=== PATIENT | female | born 1965 ===

== ENCOUNTER 2017-04-16 16:27 | Inpatient (IN) | payer BC ==
[2017-04-16 16:39] VITALS: BMI 27.4
[2017-04-16 19:41] LABS: BLOOD UREA NITROGEN 14 mg/dl (7-17); CALCIUM 9.6 mg/dL (8.4-10.2); CARBON DIOXIDE 28 mmol/L (22-30); CHLORIDE 102 mmol/L (98-107); GFR AFRICAN-AMERICAN > 60; GLUCOSE,RANDOM 139 mg/dL (65-105); SODIUM 140 mmol/l (132-148)
[2017-04-16 21:01] LABS: HEMATOCRIT 40.1 % (34.0-47.0); MEAN CELL VOLUME 84.4 fl (81.0-99.0); MEAN CORPUSCULAR HEMOGLOBIN 28.2 pg (27.0-31.0); MEAN CORPUSCULAR HGB CONC 33.4 g/dL (33.0-37.0); RED CELL DISTRIBUTION WIDTH 13.7 % (11.5-14.5); WHITE BLOOD COUNT 8.2 K/uL (4.8-10.8)
[2017-04-17] MEDS: Enoxaparin 40 mg Syringe SC SCH (08:39)
--- NOTE | 2017-04-17 11:36 | CP.PCM.HP ---
History of Present Illness - History of Present Illness History of Present Illness: 51 year old female admitted for subacute rehabiliation after acute CVA on . Initally patient woke up, her noticed facial droop, slurred speech weakness of left arm and leg. 911 was called immediately. The patient was initially evaluated at [facility], transferred to [facility]. No intervention was done. Patient had CT head that was negative. MRI brain revealed an infarct of the right MCA territory. She had TTE that was WNL, EF 55% . TTE: tiny PFO. She is currently on pureed diet. She has no medical history. She was seen by her PMD a few weeks ago, Dr. Parks. All labs at that time were within normal limits. PAtient denies any headache, dizziness, chest pain, dyspnea, abdominal pain, nausea, vomiting, diarrhea, constipation. Last BM yesterday. PMH: CVA MEdications: reviewed. AllergieS: NKDA PMD: Dr. Parks All labs/imaging reports from transfer facility reviewed. Present on Admission - Present on Admission Any Indicators Present on Admission: No History of DVT/PE: No History of Uncontrolled Diabetes: No Past Patient History - Infectious Disease Hx of Infectious Diseases: None - Past Social History Smoking Status: Never Smoked - CARDIAC Other/Comment: hx: headache >1 month - NEUROLOGICAL HX Cerebrovascular Accident: Yes - HEENT Other/Comment: eyeglasses for reading and for watching movies. - HEMATOLOGICAL/ONCOLOGICAL Hx AIDS: No Hx Human Immunodeficiency Virus (HIV): No - MUSCULOSKELETAL/RHEUMATOLOGICAL Hx Falls: No Hx Unsteady Gait: Yes - PSYCHIATRIC Hx Substance Use: No - SURGICAL HISTORY Hx Surgeries: No Other/Comment: 04/15/2017 - implantable loop recorder placement. - ANESTHESIA Hx Anesthesia: No Hx Anesthesia Reactions: No Hx Malignant Hyperthermia: No Has any member of the family had a problem w/ anesthesia?: No Meds Allergies/Adverse Reactions: Allergies Allergy/AdvReac Type Severity Reaction Status Date / Time No Known Allergies Allergy Verified 04/16/17 17:59 Physical Exam - Constitutional Appears: No Acute Distress - Head Exam Head Exam: NORMAL INSPECTION - Eye Exam Eye Exam: EOMI, Normal appearance, PERRL - ENT Exam ENT Exam: Mucous Membranes Moist, Normal Exam - Respiratory Exam Respiratory Exam: Clear to Auscultation Bilateral, NORMAL BREATHING PATTERN - Cardiovascular Exam Cardiovascular Exam: REGULAR RHYTHM, +S1, +S2 Additional comments: no murmur - GI/Abdominal Exam GI & Abdominal Exam: Normal Bowel Sounds, Soft. absent: Diminished Bowel Sounds , Distended, Guarding, Tenderness - Extremities Exam Extremities exam: Positive for: normal inspection. Negative for: pedal edema - Neurological Exam Neurological exam: Alert, CN II-XII Intact, Normal Gait, Oriented x3 Additional comments: left sided weakness upper and lower extremity, right upper and lower extremities normal strength - Psychiatric Exam Psychiatric exam: Normal Affect, Normal Mood - Skin Skin Exam: Dry, Intact, Normal Color, Warm Results - Vital Signs Recent Vital Signs: Last Vital Signs Temp 98.1 F 04/17/17 08:55 Pulse 88 04/17/17 08:55 Resp 19 04/17/17 08:55 BP 95/54 L 04/17/17 08:55 Pulse Ox 95 04/17/17 08:55 - Labs Result Diagrams: 04/16/17 20:43 04/16/17 19:25 Labs: Laboratory Results - last 24 hr 04/16/17 04/16/17 19:25 20:43 WBC 8.2 RBC 4.76 Hgb 13.4 Hct 40.1 MCV 84.4 MCH 28.2 MCHC 33.4 RDW 13.7 Plt Count 172 Sodium 140 Potassium 4.0 Chloride 102 Carbon Dioxide 28 Anion Gap 14 BUN 14 Creatinine 1.0 Est GFR ( Amer) > 60 Est GFR (Non-Af Amer) 58 Random Glucose 139 H Calcium 9.6 Assessment & Plan (1) CVA (cerebral vascular accident) Assessment and Plan: 51 year old female admitted after having CVA of right MCA admitted for subacute rehabilitation Patient is hemodynamically stable. She is on statin and aspirin. Neurology consult appreciated; hematology consult placed. Hypercoagulable workup ordered. Rehabilitation as per physiatry. Status: Acute (2) DVT prophylaxis Assessment and Plan: fortino case d/w Dr. Parks Status: Acute
--- NOTE | 2017-04-17 12:11 | PSY.TMCNF ---
Nursing - Vital Signs Vital Signs (Last 8 hours): Vital Signs 04/17/17 08:55 Temperature 98.1 F Pulse Rate 88 Respiratory 19 Rate Blood Pressure 95/54 L O2 Sat by Pulse 95 Oximetry - Medications/Other Issues Comment: Pt at moderate nutritional risk. 1. Pt to cosume 75-100% of meals. Follow-up due on 04/24/2017 - Bladder Management Bladder Pattern: Normal Voiding Method: Toilet - Bowel Management Bowel Pattern: Normal Occupational Therapy - Arousal/Attention/Orientation Patient Orientation: Person, Place, Time, Appropriate to Age, Appropriate to Situation Nutrition - Current Diet Current Diet/ Supplement/ Feedings: pureed nectar thick liquids - Appetite Percent Meal Consumed: 50-74% - Assessment/Goals/Time Frame Assessment/Goals/Time Frame: Pt at moderate nutritional risk. 1. Pt to cosume 75-100% of meals. Follow-up due on 04/24/2017 - Provider Provider: Citlalli Johnson RD Case Management - Discharge Plan Discharge Plan: Home with significant other/family Rehabilitation Plan - Treatment Plan Treatment Plan: Physical Therapy, Occupational Therapy, Speech, Dietary, Patient /Family Education - Recommendation Recommendation: Physical Therapy, Occupational Therapy, Speech, Dietary, Patient /Family Education - Discharge Plan Discharge to: Home
--- NOTE | 2017-04-17 12:18 | CON ---
NEUROLOGY CONSULTATION DATE: 04/17/2017 CHIEF COMPLAINT: Left-sided weakness. HISTORY OF PRESENT ILLNESS: This is a 51-year-old woman with no significant past medical history who was brought to the ER at [facility] on 04/13/2017 with left-sided weakness and left facial numbness as well as left facial droop and therefore was transferred to [facility] for further stroke management. She had an MRI of the brain, which showed a right MCA territory infarction involving the insula parietal lobe with no evidence of intracranial hemorrhage along with a CT angio. Findings consistent with acute infarction of the right frontal lobe with no evidence of any edema, went to [facility] for possible intervention, which was not done. Loop recorder was placed given that there was no reason for her having stroke given that the fact that she is a young patient and underwent further management. Currently, she is at [facility] for rehabilitation. Her left-sided weakness is much better than her initial presentation. She is currently on aspirin and speech is much better. There is very minimal drift. PAST MEDICAL HISTORY: Nothing significant except for recent right MCA territory infarct. SOCIAL HISTORY: No illicit drug use, smoking or EtOH abuse. REVIEW OF SYSTEMS: A 14-point review of systems is negative except in the HPI. ALLERGIES: NO KNOWN DRUG ALLERGIES. MEDICATIONS: Reviewed by nurse per reconciliation sheet. PHYSICAL EXAMINATION: VITAL SIGNS: Temperature 98.1, pulse rate of 80, blood pressure 95/54, respiratory rate of 19, oxygen saturation 95% via room air. GENERAL: The patient is sitting up in bed, in no acute distress. HEENT: Head is atraumatic and normocephalic. PERRLA. Extraocular muscles intact. NECK: Supple. No JVD. No adenopathy noted. LUNGS: Clear to auscultation. No adventitious sounds. HEART: S1 and S2. Normal rate and rhythm. No murmurs, rubs or gallops. ABDOMEN: Soft, nontender and nondistended. Bowel sounds are present. EXTREMITIES: No clubbing. No cyanosis. Peripheral pulses 2+ bilaterally. NEUROLOGIC: The patient is alert and oriented to person, place, month and year. Speech is fluent without any errors. Cranial nerves II through XII intact. Motor exam: Moves all extremities equally except for has left-sided weakness with left-sided pronator drift. Sensory exam: Light touch, pinprick, proprioception and vibration are intact. DTRs are 2+ throughout. Coordination: [id number] intact and slightly often past pointing due to left-sided weakness on the left. Gait is deferred for now. LABORATORY DATA: Sodium is 140, potassium 4, chloride of 102, carbon dioxide 28, BUN of 14, creatinine 0.1, random glucose of 139, A1c 5.4, LDL is 181. ASSESSMENT AND PLAN: This is a 51-year woman with no significant past medical history, came on 04/13/2017 to [facility] with left-sided weakness and left facial droop. A CT angio showed focal findings of acute intracranial infarction in the right frontal lobe with no hemorrhage, therefore was transferred to [facility] for possible intervention which intervention was not done. She had an MRI of the brain, which showed an acute right anterior territory infarction involving the insula parietal lobe with no evidence of intracranial hemorrhage, which was all consistent with her left-sided weakness. Her right middle cerebral artery territory infarct is likely secondary to a diffuse atherosclerotic disease, but given that she is young for age, we need to do a hypercoagulable workup. At this time, recommend, 1. Aspirin 81 mg, Lipitor 40 mg p.o. daily for stroke prevention. 2. Keep blood pressures between 120 to 130 mmHg. 3. Physical therapy/occupational therapy and speech therapy and continue with acute rehabilitation. 4. Get Hematology consult for evaluation of hypercoagulable workup and continue current present medical management. We will get homocysteine level and continue with proper good healthy diet and nutrition. Thank you for this consult. Priyank Garcia MD
--- NOTE | 2017-04-17 13:37 | PCM.RRT ---
[employer] SALES REPRESENTATIVE Nurse Assessment - IV IV Inserted during [employer]ODU[employer] SALES REPRESENTATIVE?: Yes IV Fluids Initiated During [employer] SALES REPRESENTATIVE?: NS 500cc I.Reason for [employer] SALES REPRESENTATIVE - A) Acute Change in Patient: Subjective: dizziness, blurry vision - Neurological Status (Select all that apply): Responsive, Oriented, Verbal, Follows Commands - Respiratory Oxygen Delivery Method: Room Air - Constitutional Additional Comments: tired, appears confused, oriented x 3 responsive - Head Head Exam: ATRAUMATIC, NORMAL INSPECTION, NORMOCEPHALIC - Respiratory Exam Respiratory Exam: Clear to Ausculation Bilateral, NORMAL BREATHING PATTERN - Cardiovascular Exam Cardiovascular Exam: REGULAR RHYTHM, +S1, +S2 - GI/Abdominal Exam GI & Abdominal Exam: Soft. absent: Distended, Tenderness - Neurological Exam Neurological Exam: Alert, Awake, CN II-XII Intact, Oriented x3 Plan - Assessment of Findings&Treatment Plan 51 year old female admitted after CVA for rehabilitation. [employer] SALES REPRESENTATIVE was called due to dizziness and blurry vision after straining while trying to have a bowel movement. PAtient was lying in bed upon entry to room. She denied any dizziness , vision has returned to normal. She appeared to be confused but was oriented, verbally responsive. Lungs were clear bilaterally, heart sounds present, regular rate and rhythm, negative abdominal tenderness/distention. neuro, no new focal deficits Patient has been on pureed diet, her labs were reviewed and no abnormalities noted. Symptoms are likely secondary to dehydration, 500cc NS bolus ordered. EKG done and reviewed: NSR, no acute changes Dr. Diaz was present for the duration of the [employer] SALES REPRESENTATIVE.
[2017-04-17] MEDS ORDERED: Sodium Chloride 0.9% 500 ML IV ONE (13:38)
--- NOTE | 2017-04-17 14:29 | PCM.OPOC ---
Physiatry Overall Plan of Care - Overall Plan of Care Estimated Length of Stay in Weeks: 3 Rehab Impairment: Mobility, Gait, Speech, Balance, Coordination Etiologic Diagnosis: Cerebrovascular Accident Rehab/Medical Prognosis: Fair - Anticipated Interventions Physical Therapy:: Yes Occupational Therapy:: Yes Speech Therapy:: Yes Recreational Therapy:: Yes - Therapy Goals Bed Mobility: Independent Ambulation: Independent Functional Positional Changes:: Independent Other Therapy Goals:: fair - Discharge Plan Identification of Barriers to Discharge: Home Situation Discharge Destination: Home
--- NOTE | 2017-04-17 14:57 | CON ---
PHYSIATRY CONSULTATION TIME: 02:20 in the afternoon. HISTORY OF PRESENT ILLNESS: The patient is a 51-year-old female, Armenian speaking, admitted with acute CVA. PAST MEDICAL HISTORY: The patient with no other significant past medical history. ALLERGIES: NO KNOWN ALLERGY. FAMILY HISTORY: Noncontributory. FUNCTIONAL STATUS: The patient was living with the spouse and daughter, 2 family home. Was independent in most activities previously at home. The patient had an implantable loop recorder put in on 04/15/2017. Had presented with left-sided weakness and headache and transferred to [facility]. MEDICATIONS: As per medical physician. SOCIAL HISTORY: No history of drinking. No history of smoking. REVIEW OF SYSTEMS: The patient is alert, able to follow commands. Cranial nerves II through XII intact to further assess IX and X swallowing nerves, both upper and both lower extremities. Tone normal. Range of motion is functional. Muscle strength is good. Left side weaker than the right side. Muscle strength on the left side 3+, right side 4+. Sensation to pinprick, light touch intact. Deep tendon reflexes 2+ bilaterally. Other systems are negative. IMPRESSION: Impression for the patient left hemiparesis secondary to cerebrovascular accident, status post headache, diagnosed with acute cerebrovascular accident, ICD code of 01.1. Also, no significant past medical history. The patient with deconditioning, gait difficulty, status post implantable loop recorder. Plan for the patient is physical therapy, occupational therapy, recreational therapy and speech therapy program. The patient to get upgrade in diet on nectar consistency of food at present. The patient had a carotid duplex scan done and the MRI of the brain. MRI showed acute right middle cerebral artery infarction including the insula and the perisylvian, parietal lobe. No evidence of intracranial hemorrhage. Estimated length of stay for this patient is 2 to 3 weeks. Anticipated discharge plan is to go back to live at home with supportive services. Treatment goals: The patient to be independent in bed mobility, independent to supervision for functional and positional changes, independent to supervision for simple transfers, supervision and contact guard for complex transfers, independent to supervision for ambulation with assistive devices, supervision to contact guard for elevations. To write overall plan of care on the patient. Reynaldo Khan-Gibilisco, MD
[2017-04-17] MEDS: Lactated Ringer's 1,000 ML IV SCH (17:42)
[2017-04-18] MEDS: Lactated Ringer's 1,000 ML IV SCH (06:45)
[2017-04-18] MEDS: Enoxaparin 40 mg Syringe SC SCH (08:28)
[2017-04-18] MEDS: Pantoprazole 40 mg EC Tab PO SCH (08:28)
[2017-04-18 08:51] LABS: HOMOCYSTEINE 12.2 umol/L (<10.4)
--- NOTE | 2017-04-18 11:51 | CP.PCM.PN ---
Subjective - Date & Time of Evaluation Date of Evaluation: 04/18/17 Time of Evaluation: 09:30 - Subjective Subjective: Patient seen and examined with attending. Patient seen ambulating around the unit with PT. No dizziness. Diet was advanced. IVF can be discontinued now that patient is on regular diet. Objective - Vital Signs/Intake and Output Vital Signs (last 24 hours): Temp Pulse Resp BP Pulse Ox 98.2 F 73 20 105/78 99 04/18/17 07:49 04/18/17 07:49 04/18/17 07:49 04/18/17 07:49 04/18/17 07:49 Intake and Output: 04/18/17 04/18/17 06:59 18:59 Intake Total 1200 Balance 1200 - Medications Medications: Current Medications Acetaminophen (Tylenol 325mg Tab) 650 mg PO Q4 PRN PRN Reason: Pain (1-10) Acetaminophen/Butalbital/Caffeine (Fioricet) 1 tab PO Q4 PRN PRN Reason: Headache Aspirin (Aspirin Chewable) 81 mg PO DAILY [facility] Last Admin: 04/18/17 08:28 Dose: 81 mg Atorvastatin Calcium (Lipitor) 20 mg PO HS [facility] Last Admin: 04/17/17 21:18 Dose: 20 mg Docusate Sodium (Colace) 100 mg PO BID [facility] Last Admin: 04/18/17 08:27 Dose: 100 mg Enoxaparin Sodium (Lovenox) 40 mg SC DAILY [facility] PRN Reason: Protocol Last Admin: 04/18/17 08:28 Dose: 40 mg Pantoprazole Sodium (Protonix Ec Tab) 40 mg PO DAILY [facility] Last Admin: 04/18/17 08:28 Dose: 40 mg Sennosides (Senokot Tab) 8.6 mg PO HS [facility] Last Admin: 04/17/17 21:18 Dose: 8.6 mg - Labs Labs: 04/16/17 20:43 04/16/17 19:25 - Constitutional Appears: Non-toxic, No Acute Distress - Head Exam Head Exam: ATRAUMATIC, NORMAL INSPECTION, NORMOCEPHALIC - Respiratory Exam Respiratory Exam: NORMAL BREATHING PATTERN - Cardiovascular Exam Cardiovascular Exam: REGULAR RHYTHM - Neurological Exam Neurological Exam: Alert, Awake, CN II-XII Intact, Normal Gait, Oriented x3 - Psychiatric Exam Psychiatric exam: Normal Affect, Normal Mood - Skin Skin Exam: Dry, Intact, Normal Color, Warm Assessment and Plan (1) CVA (cerebral vascular accident) Assessment & Plan: 51 year old female admitted after having CVA of right MCA admitted for subacute rehabilitation Patient is hemodynamically stable. She is on statin and aspirin. Neurology consult appreciated; hematology consult placed. Hypercoagulable workup -homocysteine level is low Rehabilitation as per physiatry. Status: Acute (2) DVT prophylaxis Assessment & Plan: lovenox Status: Acute
--- NOTE | 2017-04-18 19:33 | CP.PCM.CON ---
History of Present Illness - History of Present Illness History of Present Illness: 51 year old female admitted to subacute rehab s/p CVA, with concern for hypercoagulable state. She was brought to [facility] when her noted left sided facial droop and weakness. She was found to have a CVA and currently admitted for rehab. Given her stroke, there is a concern for hypercoagulable state. The patient notes to continued left sided weakness but feels it is improving. She denies abnormal bleeding, bruising, and clotting. Past medical history: CVA Past surgical history: None Family history: Denies hematologic and oncologic problems Social history: Denies tobacco, alcohol, and illicit drug use. Allergies: NKA Review of systems: All remaining review of systems including HEENT, cardiovascular, respiratory, gastrointestinal, genitourinary, musculoskeletal, dermatologic, neurologic, and psychiatric are negative unless mentioned in the HPI. Past Patient History - Infectious Disease Hx of Infectious Diseases: None - Past Social History Smoking Status: Never Smoked - CARDIAC Other/Comment: hx: headache >1 month - NEUROLOGICAL HX Cerebrovascular Accident: Yes - HEENT Other/Comment: eyeglasses for reading and for watching movies. - HEMATOLOGICAL/ONCOLOGICAL Hx AIDS: No Hx Human Immunodeficiency Virus (HIV): No - MUSCULOSKELETAL/RHEUMATOLOGICAL Hx Falls: No Hx Unsteady Gait: Yes - PSYCHIATRIC Hx Substance Use: No - SURGICAL HISTORY Hx Surgeries: No Other/Comment: 04/15/2017 - implantable loop recorder placement. - ANESTHESIA Hx Anesthesia: No Hx Anesthesia Reactions: No Hx Malignant Hyperthermia: No Has any member of the family had a problem w/ anesthesia?: No Meds Allergies/Adverse Reactions: Allergies Allergy/AdvReac Type Severity Reaction Status Date / Time No Known Allergies Allergy Verified 04/16/17 17:59 - Medications Medications: Current Medications Acetaminophen (Tylenol 325mg Tab) 650 mg PO Q4 PRN PRN Reason: Pain (1-10) Acetaminophen (Tylenol 325mg Tab) 650 mg PO Q4 PRN PRN Reason: Headache Last Admin: 04/18/17 14:25 Dose: 650 mg Acetaminophen/Butalbital/Caffeine (Fioricet) 1 tab PO Q4 PRN PRN Reason: Headache Aspirin (Aspirin Chewable) 81 mg PO DAILY [facility] Last Admin: 04/18/17 08:28 Dose: 81 mg Atorvastatin Calcium (Lipitor) 20 mg PO HS [facility] Last Admin: 04/17/17 21:18 Dose: 20 mg Docusate Sodium (Colace) 100 mg PO BID [facility] Last Admin: 04/18/17 16:29 Dose: 100 mg Enoxaparin Sodium (Lovenox) 40 mg SC DAILY [facility] PRN Reason: Protocol Last Admin: 04/18/17 08:28 Dose: 40 mg Pantoprazole Sodium (Protonix Ec Tab) 40 mg PO DAILY [facility] Last Admin: 04/18/17 08:28 Dose: 40 mg Sennosides (Senokot Tab) 8.6 mg PO HS [facility] Last Admin: 04/17/17 21:18 Dose: 8.6 mg Physical Exam - Head Exam Head Exam: ATRAUMATIC - Eye Exam Eye Exam: Normal appearance - ENT Exam ENT Exam: Mucous Membranes Dry - Respiratory Exam Respiratory Exam: NORMAL BREATHING PATTERN - Cardiovascular Exam Cardiovascular Exam: +S1, +S2 - GI/Abdominal Exam GI & Abdominal Exam: Normal Bowel Sounds - Extremities Exam Extremities exam: Positive for: normal inspection Results - Vital Signs Recent Vital Signs: Last Vital Signs Temp 98.2 F 04/18/17 07:49 Pulse 89 04/18/17 16:16 Resp 20 04/18/17 07:49 BP 105/78 04/18/17 07:49 Pulse Ox 99 04/18/17 07:49 - Labs Result Diagrams: 04/16/17 20:43 04/16/17 19:25 Labs: Laboratory Results - last 24 hr 04/17/17 10:25 Homocysteine 12.2 H Assessment & Plan (1) Hypercoagulable state Assessment and Plan: work up sent for inherited thrombophilia protein C+S and antithrombin III can be sent at a later time given recent clotting event homocysteine level noted high; will check B12/folate level and start PO folic acid pt on aspirin Thank you for this interesting consult. Status: Acute
[2017-04-19 08:38] LABS: HEMATOCRIT 44.3 % (34.0-47.0); MEAN CELL VOLUME 84.5 fl (81.0-99.0); MEAN CORPUSCULAR HEMOGLOBIN 28.7 pg (27.0-31.0); RED CELL DISTRIBUTION WIDTH 13.9 % (11.5-14.5); WHITE BLOOD COUNT 6.2 K/uL (4.8-10.8)
[2017-04-19 08:54] LABS: BLOOD UREA NITROGEN 14 mg/dl (7-17); CARBON DIOXIDE 31 mmol/L (22-30); CHLORIDE 100 mmol/L (98-107); GFR AFRICAN-AMERICAN > 60; GLUCOSE,RANDOM 133 mg/dL (65-105); POTASSIUM 4.4 MMOL/L (3.6-5.0); SODIUM 142 mmol/l (132-148)
[2017-04-19] MEDS: Enoxaparin 40 mg Syringe SC SCH (09:42)
[2017-04-19] MEDS: Pantoprazole 40 mg EC Tab PO SCH (09:42)
--- NOTE | 2017-04-19 12:51 | CP.PCM.PN ---
Subjective - Date & Time of Evaluation Date of Evaluation: 04/19/17 Time of Evaluation: 12:50 - Subjective Subjective: Patient seen and examined with Dr. Parks, Seen doing PT. Doing well. Clinically stable. Neurology consult noted and appreciated. Hematology consult noted and appreciated. Objective - Vital Signs/Intake and Output Vital Signs (last 24 hours): Temp Pulse Resp BP Pulse Ox 97.7 F 80 20 114/74 99 04/19/17 08:06 04/19/17 08:06 04/19/17 08:06 04/19/17 08:06 04/19/17 08:06 - Medications Medications: Current Medications Acetaminophen (Tylenol 325mg Tab) 650 mg PO Q4 PRN PRN Reason: Pain (1-10) Acetaminophen (Tylenol 325mg Tab) 650 mg PO Q4 PRN PRN Reason: Headache Last Admin: 04/18/17 14:25 Dose: 650 mg Acetaminophen/Butalbital/Caffeine (Fioricet) 1 tab PO Q4 PRN PRN Reason: Headache Aspirin (Aspirin Chewable) 81 mg PO DAILY [facility] Last Admin: 04/19/17 09:42 Dose: 81 mg Atorvastatin Calcium (Lipitor) 20 mg PO HS [facility] Last Admin: 04/18/17 21:30 Dose: 20 mg Docusate Sodium (Colace) 100 mg PO BID [facility] Last Admin: 04/19/17 09:42 Dose: 100 mg Enoxaparin Sodium (Lovenox) 40 mg SC DAILY [facility] PRN Reason: Protocol Last Admin: 04/19/17 09:42 Dose: 40 mg Folic Acid (Folic Acid) 1 mg PO DAILY [facility] Last Admin: 04/19/17 09:42 Dose: 1 mg Pantoprazole Sodium (Protonix Ec Tab) 40 mg PO DAILY [facility] Last Admin: 04/19/17 09:42 Dose: 40 mg Sennosides (Senokot Tab) 8.6 mg PO HS [facility] Last Admin: 04/18/17 21:31 Dose: 8.6 mg - Labs Labs: 04/19/17 08:15 04/19/17 08:15 - Constitutional Appears: Well, No Acute Distress - Head Exam Head Exam: ATRAUMATIC, NORMAL INSPECTION, NORMOCEPHALIC - Respiratory Exam Respiratory Exam: NORMAL BREATHING PATTERN - Cardiovascular Exam Cardiovascular Exam: REGULAR RHYTHM - Extremities Exam Extremities Exam: Normal Inspection. absent: Pedal Edema - Neurological Exam Neurological Exam: Alert, Awake, CN II-XII Intact, Normal Gait, Oriented x3 - Psychiatric Exam Psychiatric exam: Normal Affect, Normal Mood - Skin Skin Exam: Dry, Intact, Normal Color, Warm Assessment and Plan (1) CVA (cerebral vascular accident) Assessment & Plan: 51 year old female admitted after having CVA of right MCA admitted for subacute rehabilitation. Patient is medically stable. She is on statin and aspirin. Hypercoagulable workup done, b12 and folate ordered. started on folate. Rehabilitation as per physiatry. Status: Acute (2) DVT prophylaxis Assessment & Plan: lovenox Status: Acute
[2017-04-19 13:33] LABS: FOLATE 11.4 ng/mL
--- NOTE | 2017-04-19 15:01 | CP.PCM.PN ---
Subjective - Date & Time of Evaluation Date of Evaluation: 04/19/17 Time of Evaluation: 13:00 - Subjective Subjective: no acute complaints at present Objective - Vital Signs/Intake and Output Vital Signs (last 24 hours): Temp Pulse Resp BP Pulse Ox 97.7 F 80 20 114/74 99 04/19/17 08:06 04/19/17 08:06 04/19/17 08:06 04/19/17 08:06 04/19/17 08:06 - Medications Medications: Current Medications Acetaminophen (Tylenol 325mg Tab) 650 mg PO Q4 PRN PRN Reason: Pain (1-10) Acetaminophen (Tylenol 325mg Tab) 650 mg PO Q4 PRN PRN Reason: Headache Last Admin: 04/18/17 14:25 Dose: 650 mg Acetaminophen/Butalbital/Caffeine (Fioricet) 1 tab PO Q4 PRN PRN Reason: Headache Aspirin (Aspirin Chewable) 81 mg PO DAILY [facility] Last Admin: 04/19/17 09:42 Dose: 81 mg Atorvastatin Calcium (Lipitor) 20 mg PO [facility] Last Admin: 04/18/17 21:30 Dose: 20 mg Docusate Sodium (Colace) 100 mg PO BID [facility] Last Admin: 04/19/17 09:42 Dose: 100 mg Enoxaparin Sodium (Lovenox) 40 mg SC DAILY [facility] PRN Reason: Protocol Last Admin: 04/19/17 09:42 Dose: 40 mg Folic Acid (Folic Acid) 1 mg PO DAILY [facility] Last Admin: 04/19/17 09:42 Dose: 1 mg Pantoprazole Sodium (Protonix Ec Tab) 40 mg PO DAILY [facility] Last Admin: 04/19/17 09:42 Dose: 40 mg Sennosides (Senokot Tab) 8.6 mg PO [facility] Last Admin: 04/18/17 21:31 Dose: 8.6 mg - Labs Labs: 04/19/17 08:15 04/19/17 08:15 - Head Exam Head Exam: ATRAUMATIC, NORMAL INSPECTION, NORMOCEPHALIC - Eye Exam Eye Exam: EOMI, Normal appearance, PERRL Pupil Exam: NORMAL ACCOMODATION - ENT Exam ENT Exam: Mucous Membranes Moist, Normal Exam - Neck Exam Neck Exam: Full ROM, Normal Inspection - Respiratory Exam Respiratory Exam: NORMAL BREATHING PATTERN - Cardiovascular Exam Cardiovascular Exam: REGULAR RHYTHM - GI/Abdominal Exam GI & Abdominal Exam: Soft, Normal Bowel Sounds - Rectal Exam Rectal Exam: NORMAL INSPECTION - Exam External exam: NORMAL EXTERNAL EXAM - Extremities Exam Extremities Exam: Full ROM, Normal Capillary Refill, Normal Inspection - Back Exam Back Exam: NORMAL INSPECTION - Neurological Exam Neurological Exam: Alert, Awake Neuro motor strength exam: Left Upper Extremity: 3, Right Upper Extremity: 3, Left Lower Extremity: 3, Right Lower Extremity: 3 - Psychiatric Exam Psychiatric exam: Normal Affect, Normal Mood - Skin Skin Exam: Dry, Intact Assessment and Plan (1) DVT prophylaxis Status: Acute (2) Hypercoagulable state Status: Acute (3) CVA (cerebral vascular accident) Assessment & Plan: plan for physical, occupational, rec therapy monitor skin and bowel Status: Acute
--- NOTE | 2017-04-19 18:01 | CARD ---
APPROVED REPORT EKG Measurement Heart [id number] <Conclusion> Normal sinus rhythm Possible Left atrial enlargement Borderline ECG
[2017-04-20 05:24] LABS: B2 GLYCOPROTEIN I AB(IGA) <9 SAU (<=20); B2 GLYCOPROTEIN I AB(IGG) <9 SGU (<=20); B2 GLYCOPROTEIN I AB(IGM) <9 SMU (<=20)
[2017-04-20 05:41] LABS: CARDIOLIPIN AB (IGA) <11 APL (<=11)
[2017-04-20 06:30] LABS: PHOSPHATIDYLSERINE AB IGA <20 U/mL (<20)
[2017-04-20] MEDS: Enoxaparin 40 mg Syringe SC SCH (09:01)
[2017-04-20] MEDS: Pantoprazole 40 mg EC Tab PO SCH (09:02)
--- NOTE | 2017-04-20 10:23 | CP.PCM.PN ---
Subjective - Date & Time of Evaluation Date of Evaluation: 04/20/17 Time of Evaluation: 10:23 - Subjective Subjective: Complains of recurrent headaches in different areas. Objective - Vital Signs/Intake and Output Vital Signs (last 24 hours): Temp Pulse Resp BP Pulse Ox 98.0 F 80 19 109/68 98 04/20/17 09:00 04/20/17 09:00 04/20/17 09:00 04/20/17 09:00 04/20/17 09:00 - Medications Medications: Current Medications Acetaminophen (Tylenol 325mg Tab) 650 mg PO Q4 PRN PRN Reason: Pain (1-10) Acetaminophen (Tylenol 325mg Tab) 650 mg PO Q4 PRN PRN Reason: Headache Last Admin: 04/18/17 14:25 Dose: 650 mg Acetaminophen/Butalbital/Caffeine (Fioricet) 1 tab PO Q4 PRN PRN Reason: Headache Aspirin (Aspirin Chewable) 81 mg PO DAILY [facility] Last Admin: 04/20/17 09:02 Dose: 81 mg Atorvastatin Calcium (Lipitor) 20 mg PO HS [facility] Last Admin: 04/19/17 21:48 Dose: 20 mg Docusate Sodium (Colace) 100 mg PO BID [facility] Last Admin: 04/20/17 09:02 Dose: 100 mg Folic Acid (Folic Acid) 1 mg PO DAILY [facility] Last Admin: 04/20/17 09:02 Dose: 1 mg Pantoprazole Sodium (Protonix Ec Tab) 40 mg PO DAILY [facility] Last Admin: 04/20/17 09:02 Dose: 40 mg Sennosides (Senokot Tab) 8.6 mg PO HS [facility] Last Admin: 04/19/17 21:48 Dose: 8.6 mg - Labs Labs: 04/19/17 08:15 04/19/17 08:15
[2017-04-20] MEDS: Apap-Butalbital-Caffeine 325-50-40mg Tab PO PRN (13:46)
--- NOTE | 2017-04-20 23:24 | PN ---
DATE: SUBJECTIVE: The patient is a 51-year-old female, admitted for Acute Inpatient Rehab Program. No acute complaints at present, just generalized weakness. PHYSICAL EXAMINATION: VITAL SIGNS: Stable. NECK: Supple. CHEST: Symmetrical. HEART: Sounds S1 and S2. ABDOMEN: Abdominal area is benign. EXTREMITIES: No clubbing, cyanosis or edema. IMPRESSION: For the patient is acute cerebrovascular accident, ICD code of 01.1, status post left-sided weakness, gait difficulty, deconditioning. PLAN: For the patient is physical therapy, occupational therapy, recreational therapy and speech therapy. Patient for range of motion, strengthening, transfers, ambulation and gait training. Continue with Acute Rehab Program. Reynaldo Iverson MD
[2017-04-21] MEDS: Enoxaparin 40 mg Syringe SC SCH (09:07)
[2017-04-21] MEDS: Pantoprazole 40 mg EC Tab PO SCH (09:08)
--- NOTE | 2017-04-21 13:00 | CP.PCM.PN ---
Subjective - Date & Time of Evaluation Date of Evaluation: 04/21/17 Time of Evaluation: 12:59 - Subjective Subjective: patient is stable. Objective - Vital Signs/Intake and Output Vital Signs (last 24 hours): Temp Pulse Resp BP Pulse Ox 97.3 F L 75 20 105/70 99 04/21/17 10:00 04/21/17 10:00 04/21/17 10:00 04/21/17 10:00 04/21/17 10:00 - Medications Medications: Current Medications Acetaminophen (Tylenol 325mg Tab) 650 mg PO Q4 PRN PRN Reason: Pain (1-10) Acetaminophen (Tylenol 325mg Tab) 650 mg PO Q4 PRN PRN Reason: Headache Last Admin: 04/18/17 14:25 Dose: 650 mg Acetaminophen/Butalbital/Caffeine (Fioricet) 1 tab PO Q4 PRN PRN Reason: Headache Last Admin: 04/20/17 13:46 Dose: 1 tab Aspirin (Aspirin Chewable) 81 mg PO DAILY [facility] Last Admin: 04/21/17 09:07 Dose: 81 mg Atorvastatin Calcium (Lipitor) 20 mg PO HS [facility] Last Admin: 04/20/17 22:41 Dose: 20 mg Docusate Sodium (Colace) 100 mg PO BID [facility] Last Admin: 04/21/17 09:08 Dose: 100 mg Enoxaparin Sodium (Lovenox) 40 mg SC DAILY [facility] PRN Reason: Protocol Last Admin: 04/21/17 09:07 Dose: 40 mg Folic Acid (Folic Acid) 1 mg PO DAILY [facility] Last Admin: 04/21/17 09:08 Dose: 1 mg Pantoprazole Sodium (Protonix Ec Tab) 40 mg PO DAILY [facility] Last Admin: 04/21/17 09:08 Dose: 40 mg Sennosides (Senokot Tab) 8.6 mg PO HS [facility] Last Admin: 04/20/17 22:41 Dose: 8.6 mg - Labs Labs: 04/19/17 08:15 04/19/17 08:15
[2017-04-22 05:25] LABS: HEMATOCRIT 43.3 % (34.0-47.0); MEAN CELL VOLUME 86.1 fl (81.0-99.0); MEAN CORPUSCULAR HEMOGLOBIN 28.3 pg (27.0-31.0); MEAN CORPUSCULAR HGB CONC 32.8 g/dL (33.0-37.0); RED CELL DISTRIBUTION WIDTH 13.6 % (11.5-14.5); WHITE BLOOD COUNT 7.9 K/uL (4.8-10.8)
[2017-04-22 05:44] LABS: BLOOD UREA NITROGEN 19 mg/dl (7-17); CALCIUM 9.7 mg/dL (8.4-10.2); CARBON DIOXIDE 30 mmol/L (22-30); CHLORIDE 103 mmol/L (98-107); GFR AFRICAN-AMERICAN > 60; GLUCOSE,RANDOM 90 mg/dL (65-105); POTASSIUM 4.4 MMOL/L (3.6-5.0); SODIUM 142 mmol/l (132-148)
[2017-04-22] MEDS: Pantoprazole 40 mg EC Tab PO SCH (08:33)
[2017-04-22] MEDS: Enoxaparin 40 mg Syringe SC SCH (08:33)
[2017-04-22] MEDS: Apap-Butalbital-Caffeine 325-50-40mg Tab PO PRN (10:37)
--- NOTE | 2017-04-22 14:33 | CP.PCM.PN ---
Subjective - Date & Time of Evaluation Date of Evaluation: 04/22/17 Time of Evaluation: 10:00 - Subjective Subjective: no acute complaints of any pain Objective - Vital Signs/Intake and Output Vital Signs (last 24 hours): Temp Pulse Resp BP Pulse Ox 97.3 F L 79 18 111/63 100 04/22/17 07:44 04/22/17 11:43 04/22/17 07:44 04/22/17 07:44 04/22/17 07:44 - Medications Medications: Current Medications Acetaminophen (Tylenol 325mg Tab) 650 mg PO Q4 PRN PRN Reason: Pain (1-10) Acetaminophen (Tylenol 325mg Tab) 650 mg PO Q4 PRN PRN Reason: Headache Last Admin: 04/18/17 14:25 Dose: 650 mg Acetaminophen/Butalbital/Caffeine (Fioricet) 1 tab PO Q4 PRN PRN Reason: Headache Last Admin: 04/22/17 10:37 Dose: 1 tab Aspirin (Aspirin Chewable) 81 mg PO DAILY [facility] Last Admin: 04/22/17 08:30 Dose: 81 mg Atorvastatin Calcium (Lipitor) 20 mg PO HS [facility] Last Admin: 04/21/17 21:09 Dose: 20 mg Docusate Sodium (Colace) 100 mg PO BID [facility] Last Admin: 04/22/17 08:31 Dose: 100 mg Enoxaparin Sodium (Lovenox) 40 mg SC DAILY [facility] PRN Reason: Protocol Last Admin: 04/22/17 08:33 Dose: 40 mg Folic Acid (Folic Acid) 1 mg PO DAILY [facility] Last Admin: 04/22/17 08:32 Dose: 1 mg Pantoprazole Sodium (Protonix Ec Tab) 40 mg PO DAILY [facility] Last Admin: 04/22/17 08:33 Dose: 40 mg Sennosides (Senokot Tab) 8.6 mg PO [facility] Last Admin: 04/21/17 21:10 Dose: 8.6 mg - Labs Labs: 04/22/17 05:00 04/22/17 05:00 - Head Exam Head Exam: ATRAUMATIC, NORMAL INSPECTION, NORMOCEPHALIC - Eye Exam Eye Exam: EOMI, Normal appearance, PERRL Pupil Exam: NORMAL ACCOMODATION - ENT Exam ENT Exam: Mucous Membranes Moist, Normal Exam - Neck Exam Neck Exam: Normal Inspection - Respiratory Exam Respiratory Exam: NORMAL BREATHING PATTERN - Cardiovascular Exam Cardiovascular Exam: REGULAR RHYTHM - GI/Abdominal Exam GI & Abdominal Exam: Normal Bowel Sounds - Rectal Exam Rectal Exam: NORMAL INSPECTION - Exam External exam: NORMAL EXTERNAL EXAM - Extremities Exam Extremities Exam: Normal Capillary Refill, Normal Inspection - Back Exam Back Exam: NORMAL INSPECTION - Neurological Exam Neurological Exam: Alert, Awake Neuro motor strength exam: Left Upper Extremity: 3, Right Upper Extremity: 3, Left Lower Extremity: 3, Right Lower Extremity: 3 - Psychiatric Exam Psychiatric exam: Normal Affect, Normal Mood - Skin Skin Exam: Dry, Intact Assessment and Plan (1) DVT prophylaxis Status: Acute (2) Hypercoagulable state Status: Acute (3) CVA (cerebral vascular accident) Assessment & Plan: plan fo rpt, ot , res and speech Dc planning Status: Acute
[2017-04-23] MEDS: Pantoprazole 40 mg EC Tab PO SCH (08:30)
[2017-04-23] MEDS: Enoxaparin 40 mg Syringe SC SCH (08:31)
--- NOTE | 2017-04-23 13:07 | CP.PCM.PN ---
Subjective - Date & Time of Evaluation Date of Evaluation: 04/22/17 Time of Evaluation: 10:30 - Subjective Subjective: Patient is doing a lot better with PT Has no chest pain or SOB Afebrile. Objective - Vital Signs/Intake and Output Vital Signs (last 24 hours): Temp Pulse Resp BP Pulse Ox 97.6 F 79 20 111/73 97 04/23/17 10:00 04/23/17 10:00 04/23/17 10:00 04/23/17 10:00 04/23/17 10:00 - Medications Medications: Current Medications Acetaminophen (Tylenol 325mg Tab) 650 mg PO Q4 PRN PRN Reason: Pain (1-10) Last Admin: 04/23/17 08:35 Dose: 650 mg Acetaminophen (Tylenol 325mg Tab) 650 mg PO Q4 PRN PRN Reason: Headache Last Admin: 04/18/17 14:25 Dose: 650 mg Acetaminophen/Butalbital/Caffeine (Fioricet) 1 tab PO Q4 PRN PRN Reason: Headache Last Admin: 04/22/17 10:37 Dose: 1 tab Aspirin (Aspirin Chewable) 81 mg PO DAILY [facility] Last Admin: 04/23/17 08:30 Dose: 81 mg Atorvastatin Calcium (Lipitor) 20 mg PO HS [facility] Last Admin: 04/22/17 21:33 Dose: 20 mg Docusate Sodium (Colace) 100 mg PO BID [facility] Last Admin: 04/23/17 08:30 Dose: 100 mg Enoxaparin Sodium (Lovenox) 40 mg SC DAILY [facility] PRN Reason: Protocol Last Admin: 04/23/17 08:31 Dose: 40 mg Folic Acid (Folic Acid) 1 mg PO DAILY [facility] Last Admin: 04/23/17 08:30 Dose: 1 mg Pantoprazole Sodium (Protonix Ec Tab) 40 mg PO DAILY [facility] Last Admin: 04/23/17 08:30 Dose: 40 mg Sennosides (Senokot Tab) 8.6 mg PO HS [facility] Last Admin: 04/22/17 21:33 Dose: 8.6 mg - Labs Labs: 04/22/17 05:00 04/22/17 05:00
--- NOTE | 2017-04-23 13:08 | CP.PCM.PN ---
Subjective - Date & Time of Evaluation Date of Evaluation: 04/23/17 Time of Evaluation: 13:07 - Subjective Subjective: Patient has been stable Claims that she has less headaches Has no chest pain or SOB Afebrile. Objective - Vital Signs/Intake and Output Vital Signs (last 24 hours): Temp Pulse Resp BP Pulse Ox 97.6 F 79 20 111/73 97 04/23/17 10:00 04/23/17 10:00 04/23/17 10:00 04/23/17 10:00 04/23/17 10:00 - Medications Medications: Current Medications Acetaminophen (Tylenol 325mg Tab) 650 mg PO Q4 PRN PRN Reason: Pain (1-10) Last Admin: 04/23/17 08:35 Dose: 650 mg Acetaminophen (Tylenol 325mg Tab) 650 mg PO Q4 PRN PRN Reason: Headache Last Admin: 04/18/17 14:25 Dose: 650 mg Acetaminophen/Butalbital/Caffeine (Fioricet) 1 tab PO Q4 PRN PRN Reason: Headache Last Admin: 04/22/17 10:37 Dose: 1 tab Aspirin (Aspirin Chewable) 81 mg PO DAILY [facility] Last Admin: 04/23/17 08:30 Dose: 81 mg Atorvastatin Calcium (Lipitor) 20 mg PO HS [facility] Last Admin: 04/22/17 21:33 Dose: 20 mg Docusate Sodium (Colace) 100 mg PO BID [facility] Last Admin: 04/23/17 08:30 Dose: 100 mg Enoxaparin Sodium (Lovenox) 40 mg SC DAILY [facility] PRN Reason: Protocol Last Admin: 04/23/17 08:31 Dose: 40 mg Folic Acid (Folic Acid) 1 mg PO DAILY [facility] Last Admin: 04/23/17 08:30 Dose: 1 mg Pantoprazole Sodium (Protonix Ec Tab) 40 mg PO DAILY [facility] Last Admin: 04/23/17 08:30 Dose: 40 mg Sennosides (Senokot Tab) 8.6 mg PO HS [facility] Last Admin: 04/22/17 21:33 Dose: 8.6 mg - Labs Labs: 04/22/17 05:00 04/22/17 05:00
--- NOTE | 2017-04-23 13:22 | CP.PCM.PN ---
Subjective - Date & Time of Evaluation Date of Evaluation: 04/23/17 Time of Evaluation: 11:10 - Subjective Subjective: No complaints. Objective - Vital Signs/Intake and Output Vital Signs (last 24 hours): Temp Pulse Resp BP Pulse Ox 97.6 F 79 20 111/73 97 04/23/17 10:00 04/23/17 10:00 04/23/17 10:00 04/23/17 10:00 04/23/17 10:00 - Medications Medications: Current Medications Acetaminophen (Tylenol 325mg Tab) 650 mg PO Q4 PRN PRN Reason: Pain (1-10) Last Admin: 04/23/17 08:35 Dose: 650 mg Acetaminophen (Tylenol 325mg Tab) 650 mg PO Q4 PRN PRN Reason: Headache Last Admin: 04/18/17 14:25 Dose: 650 mg Acetaminophen/Butalbital/Caffeine (Fioricet) 1 tab PO Q4 PRN PRN Reason: Headache Last Admin: 04/22/17 10:37 Dose: 1 tab Aspirin (Aspirin Chewable) 81 mg PO DAILY [facility] Last Admin: 04/23/17 08:30 Dose: 81 mg Atorvastatin Calcium (Lipitor) 20 mg PO HS [facility] Last Admin: 04/22/17 21:33 Dose: 20 mg Docusate Sodium (Colace) 100 mg PO BID [facility] Last Admin: 04/23/17 08:30 Dose: 100 mg Enoxaparin Sodium (Lovenox) 40 mg SC DAILY [facility] PRN Reason: Protocol Last Admin: 04/23/17 08:31 Dose: 40 mg Folic Acid (Folic Acid) 1 mg PO DAILY [facility] Last Admin: 04/23/17 08:30 Dose: 1 mg Pantoprazole Sodium (Protonix Ec Tab) 40 mg PO DAILY [facility] Last Admin: 04/23/17 08:30 Dose: 40 mg Sennosides (Senokot Tab) 8.6 mg PO HS [facility] Last Admin: 04/22/17 21:33 Dose: 8.6 mg - Labs Labs: 04/22/17 05:00 04/22/17 05:00 - Head Exam Head Exam: ATRAUMATIC - Eye Exam Eye Exam: Normal appearance - ENT Exam ENT Exam: Mucous Membranes Dry - Respiratory Exam Respiratory Exam: NORMAL BREATHING PATTERN - Cardiovascular Exam Cardiovascular Exam: +S1, +S2 - GI/Abdominal Exam GI & Abdominal Exam: Normal Bowel Sounds - Extremities Exam Extremities Exam: Normal Inspection Assessment and Plan (1) Hypercoagulable state Assessment & Plan: no prothrombin or factor V leiden mutations homocysteine mildly elevated; can cont. daily folic acid protein C+S and antithrombin III level check in 6 weeks as outpatient daily aspirin Status: Acute
[2017-04-23 19:56] VITALS: TEMP 97.7
[2017-04-24 08:15] VITALS: BP 101/67; O2SAT 100
[2017-04-24] MEDS: Pantoprazole 40 mg EC Tab PO SCH (08:16)
[2017-04-24] MEDS: Enoxaparin 40 mg Syringe SC SCH (08:17)
[2017-04-24 08:58] VITALS: PULSE 74; RESP 19
--- NOTE | 2017-04-24 09:05 | PSY.TMCNF ---
Nursing - Vital Signs Vital Signs (Last 8 hours): Vital Signs 04/24/17 04/24/17 04/24/17 04:42 08:14 08:51 Temperature 97.7 F 97.7 F 97.7 F Pulse Rate 70 74 Respiratory 18 19 Rate Blood Pressure 101/67 101/67 O2 Sat by Pulse 100 100 Oximetry Pain: 0 - Medications/Other Issues Comment: Pt at moderate nutritional risk. 1. Pt to cosume 75-100% of meals. Follow-up due on 04/24/2017 - Skin Incision Site: Left chest area (loop recorder insertion site Dressing Status: Clean, Dry, Intact Incision Line Treatment: Dressing dry and intact - Bladder Management Bladder Pattern: Normal Voiding Method: Toilet - Bowel Management Bowel Pattern: Normal - Goals/Time Frame Comments: Pt was seen awake and alert sitting in her wheelchair in her room. Pt agreeable to visit and had family present in room. Pt's family signed consent to translate on behalf of pt. Pt was able to identify her leisure interests such as reading, writing, and cooking. Pt and pt's family stated that pt enjoys doing arts and crafts with the children that she watches. 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 Pt stated that her goal is to get home soon with family. Physical Therapy - Bed Mobility Bed Mobility: Modified Independent - Transfers Sit to Stand: Independent - Ambulation Level of Assistance: Independent Distance (ft.): 400 Assistive Devices: N/A - Stair Negotiation Stairs: Level of Assistance: Supervision Stairs: Assistive Devices: Left Handrail, Right Handrail - Standing Balance Static Stand: Modified [place] with assistive device Dynamic Stand: Supervision - Pain Pain (assessed during therapy session): 0 Comment: pt denies - Insight/Carryover Insight/Carryover: Good - Patient/Family Education Comment: therapy schedule, therapy goals, safety, mobility, use of call roberson, POC, benefits/importance of being OOB, stroke recovery - Assessment/Plan Assessment: Ms. Murray continues to make excellent progress in therapy. Patient is supervision progressing towards mod I with all mobility. Patient does not use a device. Patient is primarily limited by fear of falling. PT recommends continued skilled therapy services to maximize safety and independence with all mobility prior to home discharge with support of family and outpatient PT services. - Goals Timeframe: 3 days Goals: Patient will be I with: transfers, gait of 1000 feet without device and bed mobility. Patient will be mod I with stair negotiation of 2 flights with single rail. - Provider Therapist: Shelly Rose PT, DPT License Number: [id number] Occupational Therapy - Arousal/Attention/Orientation Patient Orientation: Person, Place, Time, Appropriate to Age, Appropriate to Situation - ADL/IADL Self Feeding: Set-up Help Grooming: Set-up Help Dressing-Upper Extremity: Supervision, Set-up Help Dressing-Lower Extremity: Set-up Help, Minimal Assistance Homemaking: Contact Guard - Sitting Balance Static Sitting: Independent with upper extremity support Dynamic Sitting: Requires supervision - Transfers Wheelchair to Bed Transfers: Contact Guard Toilet Transfers: Contact Guard - Pain Pain (assessed during therapy session): 0 Comment: pt denies - Insight/Carryover Insight/Carryover: Good - Patient/Family Education Comment: therapy schedule, therapy goals, safety, mobility, use of call roberson, POC, benefits/importance of being OOB, stroke recovery - Assessment/Plan Assessment: Ms. Murray continues to make excellent progress in therapy. Patient is supervision progressing towards mod I with all mobility. Patient does not use a device. Patient is primarily limited by fear of falling. PT recommends continued skilled therapy services to maximize safety and independence with all mobility prior to home discharge with support of family and outpatient PT services. - Goals Timeframe: 3 days Goals: Patient will be I with: transfers, gait of 1000 feet without device and bed mobility. Patient will be mod I with stair negotiation of 2 flights with single rail. - Provider Therapist: Queat Clark Speech Therapy - Plan Assessment: Ms. Murray continues to make excellent progress in therapy. Patient is supervision progressing towards mod I with all mobility. Patient does not use a device. Patient is primarily limited by fear of falling. PT recommends continued skilled therapy services to maximize safety and independence with all mobility prior to home discharge with support of family and outpatient PT services. Recreational Therapy - Participation Participation: Participates in Individual and/or Group Sessions - Attendance Attendance: 3-5 times per week - Activities Leisure Activities: Socializing - Socialization Level of Socialization: Initiates/interacts freely with care givers and peer - Assessment Assessment/Plan: Ms. Murray continues to make excellent progress in therapy. Patient is supervision progressing towards mod I with all mobility. Patient does not use a device. Patient is primarily limited by fear of falling. PT recommends continued skilled therapy services to maximize safety and independence with all mobility prior to home discharge with support of family and outpatient PT services. - Provider Therapist: Claire Gutierrez, [employer] #[id number] Nutrition - Current Diet Current Diet/ Supplement/ Feedings: Regular diet thin liquids - Appetite Percent Meal Consumed: 75-100% - Assessment/Goals/Time Frame Assessment/Goals/Time Frame: Pt at moderate nutritional risk. 1. Pt to cosume 75-100% of meals. Follow-up due on 04/24/2017 - Provider Provider: Citlalli Johnson RD Case Management - Discharge Plan Discharge Plan: Home with significant other/family
--- NOTE | 2017-04-25 11:15 | CP.PCM.DIS ---
Provider - Provider Date of Admission: 04/16/17 18:00 Attending physician: eGne Parks MD Time Spent in preparation of Discharge (in minutes): 30 Hospital Course - Lab Results Lab Results: Most Recent Lab Values WBC 7.9 K/uL (4.8-10.8) 04/22/17 05:00 RBC 5.03 Mil/uL (3.80-5.20) 04/22/17 05:00 Hgb 14.2 g/dL (12.0-16.0) 04/22/17 05:00 Hct 43.3 % (34.0-47.0) 04/22/17 05:00 MCV 86.1 fl (81.0-99.0) 04/22/17 05:00 MCH 28.3 pg (27.0-31.0) 04/22/17 05:00 MCHC 32.8 g/dL (33.0-37.0) L 04/22/17 05:00 RDW 13.6 % (11.5-14.5) 04/22/17 05:00 Plt Count 183 K/uL (130-400) 04/22/17 05:00 Factor V see note 04/17/17 14:43 Sodium 142 mmol/l (132-148) 04/22/17 05:00 Potassium 4.4 MMOL/L (3.6-5.0) 04/22/17 05:00 Chloride 103 mmol/L (98-107) 04/22/17 05:00 Carbon Dioxide 30 mmol/L (22-30) 04/22/17 05:00 Anion Gap 13 (10-20) 04/22/17 05:00 BUN 19 mg/dl (7-17) H 04/22/17 05:00 Creatinine 1.0 mg/dl (0.7-1.2) 04/22/17 05:00 Est GFR ( Amer) > 60 04/22/17 05:00 Est GFR (Non-Af Amer) 58 04/22/17 05:00 POC Glucose (mg/dL) 124 mg/dL (65-110) H 04/17/17 13:15 Random Glucose 90 mg/dL (65-105) 04/22/17 05:00 Calcium 9.7 mg/dL (8.4-10.2) 04/22/17 05:00 Vitamin B12 328 pg/mL (239-931) 04/19/17 05:20 Folate 11.4 ng/mL 04/19/17 05:20 Homocysteine 12.2 umol/L ( <10.4) H 04/17/17 10:25 [id number] Ab <9 ANGUS (<=20) 04/17/17 14:43 Beta-2 GPI IgG Ab <9 SGU (<=20) 04/17/17 14:43 Beta-2 GPI IgM Ab <9 SMU (<=20) 04/17/17 14:43 Phosphatidylserine IgG <10 U/mL (<10) 04/17/17 14:43 Phosphatidylserine IgA <20 U/mL (<20) 04/17/17 14:43 Phosphatidylserine IgM see note U/mL (<25) 04/17/17 14:43 Anti-Phospholipid Intrp see note 04/17/17 14:43 Anti-Cardiolipin IgG Ab <14 GPL (<=14) 04/17/17 14:43 Anti-Cardiolipin IgA Ab <11 APL (<=11) 04/17/17 14:43 Anti-Cardiolipin IgM Ab <12 MPL (<=12) 04/17/17 14:43 Prothrombin Mut Interp see note 04/17/17 14:43 Prothrombin Gene Mutate see note 04/17/17 14:43 Prothromb Gene Review see note 04/17/17 14:43 - Hospital Course Hospital Course: This is a 53 y/o female admitted for acute rehab after having a CVA with left facial droop and left hemiparesis. She was seen by Hematology where al work up showed negative for any hypercoagulable state. Allher symptoms subsided and was able to do PT and met all the goals of Phys therapy. Discharge Exam - Head Exam Head Exam: ATRAUMATIC - Eye Exam Eye Exam: Normal appearance - Respiratory Exam Respiratory Exam: NORMAL BREATHING PATTERN - Cardiovascular Exam Cardiovascular Exam: REGULAR RHYTHM - GI/Abdominal Exam GI & Abdominal Exam: Normal Bowel Sounds - Neurological Exam Neurological exam: CN II-XII Intact, Oriented x3 - Psychiatric Exam Psychiatric exam: Normal Mood Discharge Plan - Discharge Medications Prescriptions: Aspirin [Aspirin Chewable] 81 mg PO DAILY #100 chew Folic Acid 1 mg PO DAILY #30 tab Atorvastatin [Lipitor] 20 mg PO HS #30 tab Pantoprazole [Protonix EC Tab] 40 mg PO DAILY #30 ect - Follow Up Plan Condition: GOOD Disposition: HOME/ ROUTINE Instructions: Butalbital/Aspirin/Caffeine/Codeine (By mouth), Aspirin (By mouth ), Laxative, Stimulant (By mouth), Folic Acid (By mouth), Laxative, Stool Softeners (By mouth), Atorvastatin (By mouth), Pantoprazole (By mouth), Regular Diet (DC), Stroke (DC) Additional Instructions: FOLLOW UP APPOINTMENT 1. Dr. Silvino Ramires (Surgeon) [address] [place] [address] Saturday04/29/17 at 1:45PM 2. Dr. Simeon (Rubber Factory Worker) Appt: 04/30/17 at 1245[address] 3[address] Dr[address] Abimael Jeffrey (Neurology) Appt 05/17/17 at 1:30PM 4. Provided outpatient physical therapy prescription appointment Saturday05/07/17 at 2:00PM Please arrive one hour prior to appointment for pre-registration on 1st floor Please bring photo ID, Prescriptions & insurance cards to appt. 5. PMD (Dr. Parks) Spouse will call for appointment. 6. Dr. Kathryn Rodriguez (neuro-opthalmology) [place] [id number] Saturday05/15/17 at 3:45PM Please bring photo ID, Insurance cards to appt. 6. Dr. Robin Martin (Hematology) [address] [facility] Please schedule appt as needed.
--- NOTE | 2017-04-26 08:27 | PN ---
PHYSIATRY PROGRESS NOTE DATE: SUBJECTIVE: The patient is feeling fine. No acute complaints at present. PHYSICAL EXAMINATION: VITAL SIGNS: Vitals are stable. NECK: Supple. CHEST: Symmetrical. HEART: Sounds S1 and S2. ABDOMEN: Abdominal area is benign. EXTREMITIES: No clubbing, cyanosis or edema. IMPRESSION: Acute cerebrovascular accident, left-sided weakness, gait difficulty. The patient for discharge today. Further services and treatment, follow up with medical physician after discharge. Discussed discharge planning with the . Reynaldo Iverson MD
== END 2017-04-24 13:10 | disposition home or self-care (01) | DRG 65 ==
PROVIDERS: ADMIT Family Medicine; ATTEND Family Medicine
DX: I63.511 Cerebral infarction due to unspecified occlusion or stenosis of right middle cerebral artery (principal); D68.59 Other primary thrombophilia; G81.94 Hemiplegia, unspecified affecting left nondominant side; R29.810 Facial weakness; Z79.82 Long term (current) use of aspirin

== ENCOUNTER 2018-03-29 13:46 | Inpatient (IN) | payer BC ==
[2018-03-29 13:46] VITALS: BMI 27.4
[2018-03-29] MEDS ORDERED: Sodium Chloride 0.9% 1,000 ML IV SCH (14:00)
--- NOTE | 2018-03-29 14:02 | ED PDOC ---
HPI:STROKE - Time Time: 14:00 - Historian Historian: Patient, Family, Spouse - TPA Positive for Contraindication: Yes - Notes: Notes:: Family states @ 1:00 PM today patient c/o dizziness and BERNARD, had slurred speech and syncopal episode, no seizure activity, regained consciousness after <10 seconds without slurred speech. Pt denies complaints at this time. Had similar episode 1 year ago, dx with CVA. Pt took usual dose of ASA this AM. NIHSS Stroke Scale - Date/Time Evaluation Performed Date Performed: 03/29/18 Time Performed: 14:00 When Was NIHSS Performed: Code Stroke - How Severe is the Stroke Level of Consciousness: 0=Alert LOC to Questions: 0=Both comments correct LOC to commands: 0=Obeys both correctly Best Gaze: 0=Normal Visual: 0=No visual loss Facial: 0=Normal Motor Arm - Left: 0=No drift Motor Leg - Left: 0=No drift Motor Leg - Right: 0=No drift Limb Ataxia: 0=Absent Sensory: 0=Normal Best Language: 0=No aphasia Dysarthia: 0=Normal articulation Extinction & Inattention (Neglect): 1=Partial neglect (mild ar-attention) rTPA Inclusion/Exclusion - Refusal of Treatment Patient Refused Treatment: No - Inclusion Criteria for Altepase Patient is 18 years or Older: Yes The Clinical Diagnosis of Ischemic Stroke That is Causing a Potentially Disabling Neurological Deficit: No Time of Onset is Well Established to be Less Than 270 Minute Before Treatment Wo uld Begin: Yes Risk/Benefit Discussed With Patient/Family Member Present: No - Warning to TPA With Conditions Condition: Rapid Improvement Past Medical History Reviewed: Nursing Documentation, Vital Signs Vital Signs: Last Vital Signs Temp 97.8 F 03/29/18 13:49 Pulse 78 03/29/18 13:49 Resp 16 03/29/18 13:49 BP 99/71 L 03/29/18 13:49 Pulse Ox 98 03/29/18 13:49 - Medical History PMH: CVA Denies: HIV - Family History Family History: States: Unknown Family Hx - Immunization History Hx Tetanus Toxoid Vaccination: No Hx Influenza Vaccination: No Hx Pneumococcal Vaccination: No - Home Medications Home Medications: Ambulatory Orders Medication Instructions Recorded Aspirin [Aspirin Chewable] 81 mg PO DAILY #100 chew 04/24/17 Atorvastatin [Lipitor] 20 mg PO HS #30 tab 04/24/17 Folic Acid 1 mg PO DAILY #30 tab 04/24/17 Pantoprazole [Protonix EC Tab] 40 mg PO DAILY #30 ect 04/24/17 - Allergies Allergies/Adverse Reactions: Allergies Allergy/AdvReac Type Severity Reaction Status Date / Time No Known Allergies Allergy Verified 03/29/18 13:49 Review of Systems Constitutional: Negative for: Fever, Chills Eyes: Positive for: Vision Change Cardiovascular: Negative for: Chest Pain, Palpitations Respiratory: Negative for: Cough, Shortness of Breath Gastrointestinal: Negative for: Nausea, Vomiting, Abdominal Pain, Diarrhea Genitourinary Female: Negative for: Dysuria, Hematuria Musculoskeletal: Negative for: Neck Pain Skin: Negative for: Rash, Lesions Neurological: Positive for: Change in Speech (Resolved), Confusion (Resolved), Altered Mental Status (Resolved), Headache (Resolved), Dizziness (Resolved) Physical Exam - Reviewed Nursing Documentation Reviewed: Yes Vital Signs Reviewed: Yes - Physical Exam Appears: Positive for: Well, No Acute Distress Head Exam: Positive for: ATRAUMATIC, NORMAL INSPECTION Skin: Positive for: Normal Color, Warm, Dry Eye Exam: Positive for: Normal appearance, EOMI, PERRL Neck: Positive for: Normal, Painless ROM, Supple Cardiovascular/Chest: Positive for: Regular Rate, Rhythm Respiratory: Positive for: Normal Breath Sounds Gastrointestinal/Abdominal: Positive for: Normal Exam Extremity: Positive for: Normal ROM Neurologic/Psych: Positive for: Alert, ager tender II-XII, Oriented, Cerebellar Tests (WNL). Negative for: Motor/Sensory Deficits, Aphasia, Facial Droop - Laboratory Results Result Diagrams: 03/29/18 14:19 03/29/18 14:19 - ECG Interpretation Of ECG: NSR @ 70, no ST-T changes. O2 Sat by Pulse Oximetry: 98 Pulse Ox Interpretation: Normal - Radiology X-Ray: Interpreted by Me X-Ray Interpretation: No Acute Disease - Core Measure Core Measure Indicators: Code Stroke (13:54) - Critical Care Total Time (In Min): 45 Medical Decision Making Medical Decision Makin yo female with slurred speech and BERNARD, resolved. - code stroke - labs - EKG - CXR - CT head 14:[address] head report. Accession No. : [id number] Patient Name / ID : TOMMY ROSE / [id number] Exam Date : 03/29/2018 14:01:06 ( Approved ) Study Comment : Sex / Age : F / 52Y Creator : Julio Smiley MD Dictator : Julio Smiley MD [employer] Investigator : Branch Lending Officer : Julio Smiley MD Approver2 : Report Date : 03/29/2018 14:17:06 My Comment : This report is currently processing and HAS NOT BEEN OFFICIALLY SIGNED BY THE PHYSICIAN - ESTIMATED TIME OF APPROVAL IS 03/29/2018 14:22. Date of service: 03/29/2018 PROCEDURE: CT HEAD WITHOUT CONTRAST. HISTORY: code stroke COMPARISON: None available. TECHNIQUE: Axial computed tomography images were obtained through the head/brain without intravenous contrast. Radiation dose: Total exam DLP = 752.75 mGy-cm. This CT exam was performed using one or more of the following dose reduction techniques: Automated exposure control, adjustment of the mA and/or kV according to patient size, and/or use of iterative reconstruction technique. FINDINGS: HEMORRHAGE: No intracranial hemorrhage. BRAIN: No mass effect or edema. Old right segmental MCA territory infarction. Mild atrophy. VENTRICLES: Unremarkable. No hydrocephalus. CALVARIUM: Unremarkable. PARANASAL SINUSES: Unremarkable as visualized. No significant inflammatory changes. MASTOID AIR CELLS: Unremarkable as visualized. No inflammatory changes. OTHER FINDINGS: None. IMPRESSION: No acute intracranial pathology. Old right segmental MCA territory infarction. 15:[address] Parks. Discussed with Dr. Mustafa, ASA not needed since usual dose taken at home this AM. Disposition - Clinical Impression Clinical Impression: TIA (transient ischemic attack), Syncope - Patient ED Disposition Is Patient to be Admitted: Yes - Disposition Disposition Time: 15:03 Condition: STABLE - Pt Status Changed To: Hospital Disposition Of: Inpatient - Admit Certification Admit to Inpatient:: After my assessment, the patient will require hospitalization for at least two midnights. This is because of the severity of symptoms shown, intensity of services needed, and/or the medical risk in this patient being treated as an outpatient. - POA Present On Arrival: None
--- NOTE | 2018-03-29 14:20 | CT ---
Date of service: 03/29/2018 PROCEDURE: CT HEAD WITHOUT CONTRAST. HISTORY: code stroke COMPARISON: None available. TECHNIQUE: Axial computed tomography images were obtained through the head/brain without intravenous contrast. Radiation dose: Total exam DLP = 752.75 mGy-cm. This CT exam was performed using one or more of the following dose reduction techniques: Automated exposure control, adjustment of the mA and/or kV according to patient size, and/or use of iterative reconstruction technique. FINDINGS: HEMORRHAGE: No intracranial hemorrhage. BRAIN: No mass effect or edema. Old right segmental MCA territory infarction. Mild atrophy. VENTRICLES: Unremarkable. No hydrocephalus. CALVARIUM: Unremarkable. PARANASAL SINUSES: Unremarkable as visualized. No significant inflammatory changes. MASTOID AIR CELLS: Unremarkable as visualized. No inflammatory changes. OTHER FINDINGS: None. IMPRESSION: No acute intracranial pathology. Old right segmental MCA territory infarction. Findings conveyed to Dr. Guzman by Dr. Garcia at 2:15 p.m.
[2018-03-29 14:31] LABS: EOS # 0.1 K/uL (0.0-0.7); EOS % 1.7 % (0.0-4.0); HEMOGLOBIN 14.5 g/dL (12.0-16.0); LYMPH # 2.3 K/uL (1.0-4.3); LYMPH % 39.3 % (20.0-40.0); MEAN CELL VOLUME 85.3 fl (81.0-99.0); MEAN CORPUSCULAR HEMOGLOBIN 28.8 pg (27.0-31.0); MEAN CORPUSCULAR HGB CONC 33.8 g/dL (33.0-37.0); MONO # 0.2 K/uL (0.0-0.8); MONO % 3.4 % (0.0-10.0); NEUT # 3.2 K/uL (1.8-7.0); NEUT % 55.6 % (50.0-75.0); NRBC % 0.2 % (0.0-0.0); RBC 5.02 Mil/uL (3.80-5.20); RED CELL DISTRIBUTION WIDTH 13.8 % (11.5-14.5); WHITE BLOOD COUNT 5.8 K/uL (4.8-10.8)
[2018-03-29 14:36] LABS: PROTHROMBIN TIME 11.4 Seconds (9.8-13.1)
[2018-03-29 14:39] LABS: PARTIAL THROMBOPLASTIN TIME 35.8 Seconds (25.6-37.1)
[2018-03-29 14:42] LABS: ALB/GLOB RATIO 1.2 (1.0-2.1); ALBUMIN 4.5 g/dL (3.5-5.0); ALT/SGPT 25 U/L (9-52); AST/SGOT 27 U/L (14-36); BLOOD UREA NITROGEN 14 mg/dl (7-17); CALCIUM 9.9 mg/dL (8.4-10.2); GFR NON-AFRICAN AMERICAN 58; HDL CHOLESTEROL 71 MG/DL (30-70)
[2018-03-29 14:53] LABS: LDL CHOLESTEROL 56 mg/dL (0-129)
--- NOTE | 2018-03-29 15:18 | RAD ---
Date of service: 03/29/2018 HISTORY: Code Stroke COMPARISON: No prior. FINDINGS: LUNGS: No active pulmonary disease. PLEURA: No significant pleural effusion identified, no pneumothorax apparent. CARDIOVASCULAR: No aortic atherosclerotic calcification present. Normal cardiac size. No pulmonary vascular congestion. OSSEOUS STRUCTURES: No significant abnormalities. VISUALIZED UPPER ABDOMEN: Normal. OTHER FINDINGS: Subcutaneous cardiac device overlying the left chest. IMPRESSION: No active disease.
--- NOTE | 2018-03-29 16:41 | CARD ---
APPROVED REPORT Date of service: 03/29/2018 EKG Measurement Heart [id number] [id number] <Conclusion> Normal sinus rhythm Normal ECG
[2018-03-29] MEDS: Dextrose 5%/Lactated Ringer's 1,000 ML IV SCH (19:04)
[2018-03-30] MEDS: Pantoprazole 40 mg EC Tab PO SCH (08:55)
--- NOTE | 2018-03-30 11:53 | US ---
Date of service: 03/30/2018 PROCEDURE: Duplex ultrasound of the carotid and vertebral arteries. HISTORY: TIA COMPARISON: None available. TECHNIQUE: Grayscale and duplex Doppler evaluation of the cervical carotid and vertebral arteries were performed. The common carotid, carotid bifurcations and cervical ICA and proximal ECA were evaluated. The vertebral arteries were evaluated for gross patency and direction. FINDINGS: RIGHT CAROTID ARTERIES: Common Carotid Artery: Normal. Maximal flow velocity of 59.7 cm/s. Carotid Bifurcation: Normal. Internal Carotid Artery:Normal. Maximal flow velocity of 93.5 cm/s. External Carotid Artery (proximal branches): Normal. Maximal flow velocity of 52.6 cm/s. ICA/CCA Ratio: 2.1 LEFT CAROTID ARTERIES: Common Carotid Artery: Normal. Maximal flow velocity of 81.8 cm/s. Carotid Bifurcation: Normal. Internal Carotid Artery:Normal. Maximal flow velocity of 84.4 cm/s. External Carotid Artery (proximal branches): Normal. Maximal flow velocity of 86.4 cm/s. ICA/CCA Ratio: 1.4 VERTEBRAL ARTERIES: Right Vertebral Artery: Patent. Antegrade flow. Left Vertebral Artery: Patent. Antegrade flow. OTHER FINDINGS: No atherosclerotic calcification present IMPRESSION: Per NASCET criteria, no stenosis of the internal carotid arteries, bilaterally.
[2018-03-30] MEDS: Dextrose 5%/Lactated Ringer's 1,000 ML IV SCH (12:36)
--- NOTE | 2018-03-30 20:11 | CON ---
DATE: 03/29/2018 REASON FOR CONSULTATION: TIA. HISTORY OF PRESENT ILLNESS: The patient is a 52-year-old female who has been asked for evaluation of TIA. The patient was apparently at home when family noted that the patient started having slurring of speech. The patient felt dizzy a few minutes prior to that. After that, the patient passed out. The patient was unconscious very briefly. She did not have any urinary incontinence or tongue biting. The patient had a similar episode about a year ago following which she was diagnosed with stroke. At that time, she also had weakness of the left side. The patient did take one dose of aspirin yesterday. At the moment, she feels fine. Denies any headache or dizziness. PAST MEDICAL HISTORY: Includes CVA in 2017. MEDICATIONS AT HOME: Included ibuprofen, aspirin, statin, pantoprazole, and cyclobenzaprine. ALLERGIES: NO KNOWN DRUG ALLERGIES. FAMILY HISTORY: Reviewed and noncontributory to the case. SOCIAL HISTORY: Denies smoking, use of alcohol or illicit drugs. REVIEW OF SYSTEMS: Denies any headache, dizziness, chest pain, shortness of breath, abdominal pain, constipation, diarrhea, dysuria, pyuria, cough, sputum production, focal weakness in arms or legs. PHYSICAL EXAMINATION GENERAL: The patient is a middle-aged pleasant female lying in the bed in no acute distress. VITAL SIGNS: Blood pressure is 105/68, heart rate is 62 per minute, breathing at the rate of 16 per minute. Temperature is 97.4 degree Fahrenheit. HEENT: Normocephalic, atraumatic. NECK: Supple. There are no carotid bruits. CARDIOPULMONARY: S1 and S2 audible. No murmurs. LUNGS: Clear. ABDOMEN: Soft and nontender. Bowel sounds are present. NEUROLOGY: Mental status: The patient is awake, alert, oriented to time, place and person. Speech is fluent. Naming and repetition normal. Memory and cognition are intact. Cranial nerve examination: Pupils are 4 mm bilaterally, reactive to light. Visual ramos are full. Extraocular movements are intact. There is no facial asymmetry. Palate is upgoing bilaterally and tongue is midline. Motor examination: Tone is normal. Power is 5/5 bilaterally in all extremities. Reflexes are +2 and symmetrical. Plantars downgoing bilaterally. LABORATORY DATA: Labs reviewed, show WBC 5.8, hemoglobin 14.5, hematocrit 42.8, and platelets were 170. Her sodium is 143, potassium 4, chloride 106, carbon dioxide 27, BUN of 14, creatinine 1, glucose of 103. Her INR is 1. The patient had a CT scan of the head done, which shows no acute intracranial pathology, old right segmental MCA territory infarction. ASSESSMENT: 1. Episode of slurring of speech followed by episode of syncope, possible transient ischemic attack. 2. History of old cerebrovascular accident. RECOMMENDATION: 1. The patient to have MRI of the brain without contrast. 2. The patient also to have a carotid Doppler study. 3. The patient to be continued on aspirin and statin. 4. The patient had no further episodes of passing out. 5. The patient to have an electroencephalogram. If not done as inpatient, then may be done as outpatient. 6. Please continue supportive care and other treatment. 7. The patient was not a candidate for tPA administration because of resolution of her symptoms. Thank you for the opportunity to participate in the care of this patient. Michael Mustafa MD
--- NOTE | 2018-03-30 22:47 | CP.PCM.HP ---
History of Present Illness - History of Present Illness History of Present Illness: This is a 52 y/o female with hx of CVA with hemiparesis more than a year ago was admitted due to fainting and few seconds of syncope. She was noted to be dazed and confused after the episode hence was brought to the ER. At the ER all her sx have resolved. She denies any headaches chest pain or SOB Denies any dizziness. Present on Admission - Present on Admission Any Indicators Present on Admission: No History of DVT/PE: No History of Uncontrolled Diabetes: No Urinary Catheter: No Decubitus Ulcer Present: No Review of Systems - Constitutional Constitutional: Headache Additional comments: insomnia Past Patient History - Infectious Disease Hx of Infectious Diseases: None - Past Social History Smoking Status: Never Smoked - CARDIAC Other/Comment: hx: headache >1 month - NEUROLOGICAL Hx Neurological Disorder: Yes HX Cerebrovascular Accident: Yes - HEENT Other/Comment: eyeglasses for reading and for watching movies. - HEMATOLOGICAL/ONCOLOGICAL Hx Human Immunodeficiency Virus (HIV): No - MUSCULOSKELETAL/RHEUMATOLOGICAL Hx Falls: No Hx Unsteady Gait: Yes - PSYCHIATRIC Hx Substance Use: No - SURGICAL HISTORY Hx Surgeries: No Other/Comment: 04/15/2017 - implantable loop recorder placement. - ANESTHESIA Hx Anesthesia: No Hx Anesthesia Reactions: No Hx Malignant Hyperthermia: No Meds Allergies/Adverse Reactions: Allergies Allergy/AdvReac Type Severity Reaction Status Date / Time No Known Allergies Allergy Verified 03/29/18 13:49 Physical Exam - Head Exam Head Exam: NORMAL INSPECTION - Eye Exam Eye Exam: Normal appearance - Respiratory Exam Respiratory Exam: Clear to Auscultation Bilateral - Cardiovascular Exam Cardiovascular Exam: REGULAR RHYTHM - GI/Abdominal Exam GI & Abdominal Exam: Normal Bowel Sounds - Neurological Exam Neurological exam: CN II-XII Intact, Oriented x3 - Psychiatric Exam Psychiatric exam: Normal Mood Results - Vital Signs Recent Vital Signs: Last Vital Signs Temp 97.3 F L 03/30/18 20:41 Pulse 79 03/30/18 20:41 Resp 18 03/30/18 20:41 BP 108/73 03/30/18 20:41 Pulse Ox 98 03/30/18 20:41 - Labs Result Diagrams: 03/29/18 14:19 03/29/18 14:19 Labs: Laboratory Results - last 24 hr 03/29/18 14:19 Hemoglobin A1c 5.4 Assessment & Plan (1) Syncope Status: Acute (2) Insomnia Status: Acute - Assessment and Plan (Free Text) Plan: The syncope was probably from lack of sleep for a long time She does not have sx of TIA will follow up brain MRI send for carotid CTA.
--- NOTE | 2018-03-30 22:51 | CP.PCM.PN ---
Subjective - Date & Time of Evaluation Date of Evaluation: 03/30/18 Time of Evaluation: 18:40 - Subjective Subjective: patient is doing a lot betetr Has no dizziness headaches chest pain or SOB head and neck CT was negative Seen by Neuro and ordered MRI head. Objective - Vital Signs/Intake and Output Vital Signs (last 24 hours): Temp Pulse Resp BP Pulse Ox 97.3 F L 79 18 108/73 98 03/30/18 20:41 03/30/18 20:41 03/30/18 20:41 03/30/18 20:41 03/30/18 20:41 - Medications Medications: Current Medications Aspirin (Aspirin Chewable) 81 mg PO DAILY [facility] Last Admin: 03/30/18 08:55 Dose: 81 mg Atorvastatin Calcium (Lipitor) 20 mg PO DAILY@2200 [facility] Pantoprazole Sodium (Protonix Ec Tab) 40 mg PO DAILY [facility] Last Admin: 03/30/18 08:55 Dose: 40 mg - Labs Labs: 03/29/18 14:19 03/29/18 14:19 PT 11.4 Seconds (9.8-13.1) 03/29/18 14:19 INR 1.0 03/29/18 14:19 APTT 35.8 Seconds (25.6-37.1) 03/29/18 14:19 - Head Exam Head Exam: NORMAL INSPECTION - Eye Exam Eye Exam: Normal appearance - Respiratory Exam Respiratory Exam: NORMAL BREATHING PATTERN - Cardiovascular Exam Cardiovascular Exam: REGULAR RHYTHM - GI/Abdominal Exam GI & Abdominal Exam: Normal Bowel Sounds - Neurological Exam Neurological Exam: Awake, Oriented x3 Assessment and Plan (1) Syncope Status: Acute (2) Insomnia Status: Acute - Assessment and Plan (Free Text) Plan: Discussed with patient and will follow up MRI phys therapy in am 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
[2018-03-31] MEDS: Pantoprazole 40 mg EC Tab PO SCH ×3 (09:40→18:08)
--- NOTE | 2018-03-31 12:36 | CP.PCM.PN ---
Subjective - Date & Time of Evaluation Date of Evaluation: 03/31/18 Time of Evaluation: 11:00 - Subjective Subjective: patient seen and examined at bedside. no acute events overnight. states she feels well. no other complaints at this time. Objective - Vital Signs/Intake and Output Vital Signs (last 24 hours): Temp Pulse Resp BP Pulse Ox 97.6 F 79 18 131/85 100 03/31/18 08:27 03/31/18 08:27 03/31/18 08:27 03/31/18 08:27 03/31/18 08:27 - Medications Medications: Current Medications Aspirin (Aspirin Chewable) 81 mg PO DAILY [facility] Last Admin: 03/31/18 09:48 Dose: Not Given Atorvastatin Calcium (Lipitor) 20 mg PO DAILY@2200 [facility] Last Admin: 03/30/18 22:00 Dose: 20 mg Pantoprazole Sodium (Protonix Ec Tab) 40 mg PO DAILY [facility] Last Admin: 03/31/18 09:50 Dose: Not Given - Labs Labs: 03/29/18 14:19 03/29/18 14:19 PT 11.4 Seconds (9.8-13.1) 03/29/18 14:19 INR 1.0 03/29/18 14:19 APTT 35.8 Seconds (25.6-37.1) 03/29/18 14:19 - Constitutional Appears: Well, Non-toxic, No Acute Distress - Head Exam Head Exam: NORMAL INSPECTION - Eye Exam Eye Exam: Normal appearance - Neck Exam Neck Exam: Normal Inspection - Respiratory Exam Respiratory Exam: Clear to Ausculation Bilateral, NORMAL BREATHING PATTERN - Cardiovascular Exam Cardiovascular Exam: REGULAR RHYTHM, +S1, +S2 - GI/Abdominal Exam GI & Abdominal Exam: Soft, Normal Bowel Sounds - Extremities Exam Extremities Exam: Normal Inspection - Back Exam Back Exam: NORMAL INSPECTION - Neurological Exam Neurological Exam: Alert, Awake, Oriented x3 - Psychiatric Exam Psychiatric exam: Normal Affect, Normal Mood - Skin Skin Exam: Normal Color, Warm Assessment and Plan - Assessment and Plan (Free Text) Assessment: 52 y/o female with hx of CVA with resolved hemiparesis more than a year ago was admitted due to fainting and few seconds of syncope. plan c/w meds as prescribed neurology following pending MRI
[2018-04-01 00:07] VITALS: RESP 18
[2018-04-01] MEDS: Pantoprazole 40 mg EC Tab PO SCH (09:47)
--- NOTE | 2018-04-01 10:48 | MRI ---
Date of service: 03/31/2018 PROCEDURE: MRI BRAIN WITHOUT CONTRAST HISTORY: TIA COMPARISON: Noncontrast head CT from 03/29/2018. TECHNIQUE: Multiplanar, multisequence MR images of the brain were obtained without intravenous contrast enhancement. FINDINGS: HEMORRHAGE: None DWI: No evidence of an acute or early subacute infarction. BRAIN PARENCHYMA: There is cystic encephalomalacia and gliosis in the right posterior frontal and parietal lobe, sequela of remote MCA territory infarction. There are minimal chronic microangiopathic changes. There is no mass, mass effect or abnormal extra-axial fluid collection. The midline sagittal structures are normal. VENTRICLES: There is mild age-related global parenchymal volume loss and proportionate enlargement of the ventricles and cortical sulci. CRANIUM: There is normal bone marrow signal pattern. ORBITS: Grossly unremarkable. PARANASAL SINUSES/MASTOIDS: Predominantly clear. VASCULAR SYSTEM: Skull base flow voids intact. OTHER FINDINGS: None. IMPRESSION: No acute intracranial abnormality. Right posterior frontal and parietal lobe cystic encephalomalacia and gliosis, sequela of remote MCA territory infarction. Mild chronic microangiopathic changes and mild age-related global parenchymal volume loss.
[2018-04-01 12:36] VITALS: BP 111/75; PULSE 73; TEMP 97.8; O2SAT 100
--- NOTE | 2018-04-01 17:01 | PQF ---
PROVIDER RESPONSE TEXT: Hemiparesis has resolved. REVIEWER QUERY TEXT: Clarification of Clinical Diagnostic Findings Please clarify documentation of CVA with hemiparesis more than a year ago: i.e current hemiparesis v ersus a hx. of hemiparesis which has resolved OR: Other explanation of clinical finding H and P; This is a 52 y/o female with hx of CVA with hemiparesis more than a year ago was admitted du to fainting and few seconds of syncope. 03/30: Neuro consult: VITAL SIGN section: of report: :Motor examination: Tone is normal. Power is 5/5 bilaterally in all extremities. Reflexes are +[address] scan of the head:shows no acute intracranial pathology, old right segmental MCA territory infarcti on. ASSESSMENT::1. Episode of slurring of speech followed by episode of syncope, possible transient ischemic attack. 2. History of old cerebrovascular accident. The patient's Clinical Indicators include: - Query created by: Carmela Amador on 03/31/2018 1:51 PM Electronically signed by: Nathanael Saucedo 04/01/2018 4:57 PM
== END 2018-04-01 13:48 | disposition home health service (06) | DRG 312 ==
LOC: H.ER 13:46 → H.ERHOLD 15:03 → H.TEL 17:44
PROVIDERS: ADMIT Family Medicine; ATTEND Family Medicine
DX: R55 Syncope and collapse (principal); G47.00 Insomnia, unspecified; Z86.73 Personal history of transient ischemic attack (TIA), and cerebral infarction without residual deficits